=== PATIENT | female | born 1945 | race African-American/Black ===

== ENCOUNTER 2016-09-27 17:42 | Inpatient (IN) | payer MEDICARE ==
[2016-09-27] MEDS ORDERED: SODIUM CHLORIDE 0.9% 1,000 ML IV ONE (18:01)
--- NOTE | 2016-09-27 18:06 | ED ---
General Adult HPI - General Chief complaint: Altered Mental Status Stated complaint: Altered Mental Status Time Seen by Provider: 09/27/16 18:01 Source: patient, EMS, RN notes reviewed, old records reviewed Mode of arrival: EMS Limitations: altered mental status - History of Present Illness Initial comments: This is a 8-year-old female here for evaluation of altered mental status. Patient ultimately of history secondary to mental state. Asians poor historian. Patient denies drugs or alcohol. Patient's family EMS after PD question patient regarding trying to get him to [place]. Patient does not or she is not a [place] think she come from [facility] and she turned the wrong way and [address]. Again patient has no complaints - Related Data Allergies Allergy/AdvReac Type Severity Reaction Status Date / Time No Known Allergies Allergy Verified 09/27/16 17:50 Review of Systems ROS Statement: Those systems with pertinent positive or pertinent negative responses have been documented in the HPI. ROS Other: All systems not noted in ROS Statement are negative. Past Medical History Past Medical History: Unable to Obtain History of Any Multi-Drug Resistant Organisms: None Reported Past Surgical History: Unable to Obtain Past Psychological History: No Psychological Hx Reported Smoking Status: Never smoker Past Alcohol Use History: None Reported Past Drug Use History: None Reported General Exam Limitations: altered mental status General appearance: alert, in no apparent distress, in distress Head exam: Present: atraumatic, normocephalic, normal inspection Eye exam: Present: normal appearance, PERRL, EOMI. Absent: scleral icterus, conjunctival injection, periorbital swelling ENT exam: Present: normal exam, mucous membranes moist Neck exam: Present: normal inspection. Absent: tenderness, meningismus, lymphadenopathy Respiratory exam: Present: normal lung sounds bilaterally. Absent: respiratory distress, wheezes, rales, rhonchi, stridor Cardiovascular Exam: Present: regular rate, normal rhythm, normal heart sounds. Absent: systolic murmur, diastolic murmur, rubs, gallop, clicks GI/Abdominal exam: Present: soft, normal bowel sounds. Absent: distended, tenderness, guarding, rebound, rigid Extremities exam: Present: normal inspection, full ROM, normal capillary refill. Absent: tenderness, pedal edema, joint swelling, calf tenderness Back exam: Present: normal inspection Neurological exam: Present: alert, oriented X3, CN II-XII intact Psychiatric exam: Present: normal affect, normal mood Skin exam: Present: warm, dry, intact, normal color. Absent: rash Course Vital Signs 09/27/16 09/27/16 17:46 18:44 Temperature 98.3 F Pulse Rate 89 80 Respiratory 20 16 Rate Blood Pressure 162/74 149/66 O2 Sat by Pulse 97 95 Oximetry - Reevaluation(s) Reevaluation #1: 09/27/16 18:50 Patient remained significant other with no family member at bedside EKG Findings - EKG Comments: EKG Findings:: EKG shows normal sinus rhythm rate of 84, para 206, QRS 80, QTC 475 Medical Decision Making - Medical Decision Making 71 female in the ER for evaluation of altered mental status. Patient is not aware she is or how she got here. Patient was found try to get in to [place]. Patient is found to be anemic and will be admitted for transfusion and further monitoring of mental state - Lab Data Result diagrams: 09/27/16 18:00 09/27/16 18:00 Lab Results 09/27/16 09/27/16 09/27/16 Range/Units 18:00 18:00 18:00 WBC 7.1 (3.8-10.6) k/uL RBC 3.65 L (3.80-5.40) m/uL Hgb 5.5 L* (11.4-16.0) gm/dL Hct 23.0 L (34.0-46.0) % MCV 63.1 L (80.0-100.0) fL MCH 15.0 L (25.0-35.0) pg MCHC 23.8 L (31.0-37.0) g/dL RDW 22.2 H (11.5-15.5) % Plt Count 354 (150-450) k/uL Neutrophils % 77 % Lymphocytes % 14 % Monocytes % 4 % Eosinophils % 2 % Basophils % 1 % Neutrophils # 5.5 (1.3-7.7) k/uL Lymphocytes # 1.0 (1.0-4.8) k/uL Monocytes # 0.3 (0-1.0) k/uL Eosinophils # 0.2 (0-0.7) k/uL Basophils # 0.1 (0-0.2) k/uL Polychromasia Present Hypochromasia Marked Poikilocytosis Slight Anisocytosis Moderate Microcytosis Marked PT (9.0-12.0) sec INR (<1.1) APTT (22.0-30.0) sec Sodium 143 (137-145) mmol/L Potassium 3.4 L (3.5-5.1) mmol/L Chloride 104 (98-107) mmol/L Carbon Dioxide 27 (22-30) mmol/L Anion Gap 12 mmol/L BUN 16 (7-17) mg/dL Creatinine 0.71 (0.52-1.04) mg/dL Est GFR (MDRD) Af Amer >60 (>60 ml/min/1.73 sqM) Est GFR (MDRD) Non-Af >60 (>60 ml/min/1.73 sqM) Glucose 122 H (74-99) mg/dL Calcium 8.9 (8.4-10.2) mg/dL Total Bilirubin 1.4 H (0.2-1.3) mg/dL AST 13 L (14-36) U/L ALT 20 (9-52) U/L Alkaline Phosphatase 94 (38-126) U/L Ammonia 20 (<30) umol/L Total Protein 6.8 (6.3-8.2) g/dL Albumin 3.7 (3.5-5.0) g/dL Serum Alcohol <10 mg/dL 09/27/16 Range/Units 18:00 WBC (3.8-10.6) k/uL RBC (3.80-5.40) m/uL Hgb (11.4-16.0) gm/dL Hct (34.0-46.0) % MCV (80.0-100.0) fL MCH (25.0-35.0) pg MCHC (31.0-37.0) g/dL RDW (11.5-15.5) % Plt Count (150-450) k/uL Neutrophils % % Lymphocytes % % Monocytes % % Eosinophils % % Basophils % % Neutrophils # (1.3-7.7) k/uL Lymphocytes # (1.0-4.8) k/uL Monocytes # (0-1.0) k/uL Eosinophils # (0-0.7) k/uL Basophils # (0-0.2) k/uL Polychromasia Hypochromasia Poikilocytosis Anisocytosis Microcytosis PT 11.0 (9.0-12.0) sec INR 1.1 (<1.1) APTT 24.3 (22.0-30.0) sec Sodium (137-145) mmol/L Potassium (3.5-5.1) mmol/L Chloride (98-107) mmol/L Carbon Dioxide (22-30) mmol/L Anion Gap mmol/L BUN (7-17) mg/dL Creatinine (0.52-1.04) mg/dL Est GFR (MDRD) Af Amer (>60 ml/min/1.73 sqM) Est GFR (MDRD) Non-Af (>60 ml/min/1.73 sqM) Glucose (74-99) mg/dL Calcium (8.4-10.2) mg/dL Total Bilirubin (0.2-1.3) mg/dL AST (14-36) U/L ALT (9-52) U/L Alkaline Phosphatase (38-126) U/L Ammonia (<30) umol/L Total Protein (6.3-8.2) g/dL Albumin (3.5-5.0) g/dL Serum Alcohol mg/dL - Radiology Data Radiology results: report reviewed (CT brain is negative for acute disease), image reviewed Disposition Clinical Impression: Altered mental status, Anemia Disposition: ADMITTED IP TO [facility] Condition: Fair Referrals: Nonstaff,Physician [Primary Care Provider] - 1-2 days
[2016-09-27 18:28] LABS: Anisocytosis Moderate; Basophils # (A) 0.1 k/uL (0-0.2); Basophils % (A) 1 %; CH 15.2; CHCM 24.4; Eosinophils # (A) 0.2 k/uL (0-0.7); Eosinophils % (A) 2 %; HDW 3.49; Hypochromasia Marked; Luc # (Auto) 0.14; Luc % (Auto) 2; Lymphocytes % (A) 14 %; MCV 63.1 fL (80.0-100.0); Mean Platelet Volume 8.4; Microcytosis Marked; Monocytes # (A) 0.3 k/uL (0-1.0); Monocytes % (A) 4 %; Neutrophils # (A) 5.5 k/uL (1.3-7.7); Neutrophils % (A) 77 %; Poikilocytosis Slight; RBC 3.65 m/uL (3.80-5.40); RDW 22.2 % (11.5-15.5); WBC 7.1 k/uL (3.8-10.6); WBC (Perox) 6.94
[2016-09-27 18:29] LABS: MCHC 23.8 g/dL (31.0-37.0)
[2016-09-27 18:30] LABS: HGB 5.5 gm/dL (11.4-16.0)
[2016-09-27 18:40] LABS: Polychromasia Present
--- NOTE | 2016-09-27 18:41 | CT ---
EXAMINATION TYPE: CT brain wo con DATE OF EXAM: 09/27/2016 6:36 PM COMPARISON: NONE HISTORY: Altered mental status. CT DLP: 1121.00 mGycm Automated exposure control for dose reduction was used. FINDINGS: There is patchy hypodensity in the periventricular white matter. There is some 2 cm area of cortical decreased density in the right posterior parietal lobe. There is no mass effect nor midline shift. Th ere is no sign of intracranial hemorrhage. The calvarium is intact. There is cerebral cortical atroph y. IMPRESSION: Cerebral atrophy and moderate chronic small vessel ischemia. 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 No acute abnormality.
[2016-09-27 18:42] LABS: ALT 20 U/L (9-52); AST 13 U/L (14-36); Alcohol <10 mg/dL; Alkaline Phosphatase 94 U/L (38-126); Anion Gap 12 mmol/L; Blood Urea Nitrogen 16 mg/dL (7-17); Calcium 8.9 mg/dL (8.4-10.2); Carbon Dioxide 27 mmol/L (22-30); Chloride 104 mmol/L (98-107); Glucose 122 mg/dL (74-99); Non-African American GFR(MDRD) >60 (>60 ml/min/1.73 sqM); Potassium 3.4 mmol/L (3.5-5.1); Sodium 143 mmol/L (137-145); Total Bilirubin 1.4 mg/dL (0.2-1.3); Total Protein 6.8 g/dL (6.3-8.2)
[2016-09-27 18:47] LABS: INR 1.1 (<1.1); Partial Thromboplastin Time 24.3 sec (22.0-30.0)
[2016-09-27 18:49] LABS: Creatine Kinase 62 U/L (30-135)
[2016-09-27 19:02] LABS: Creatine Kinase MB 0.9 ng/mL (0.0-2.4); Troponin I <0.012 ng/mL (0.000-0.034)
[2016-09-27] MEDS: SODIUM CHLORIDE 0.9% 1,000 ML IV SCH (21:58)
[2016-09-28 04:51] LABS: Anisocytosis Moderate; Basophils % (A) 0 %; CH 18.5; CHCM 27.1; Eosinophils # (A) 0.2 k/uL (0-0.7); Eosinophils % (A) 2 %; HCT 28.1 % (34.0-46.0); HDW 6.51; Hypochromasia Marked; Luc # (Auto) 0.23; Luc % (Auto) 3; Lymphocytes # (A) 0.9 k/uL (1.0-4.8); Lymphocytes % (A) 12 %; MCH 18.4 pg (25.0-35.0); MCV 67.3 fL (80.0-100.0); Mean Platelet Volume 7.9; Microcytosis Marked; Monocytes # (A) 0.3 k/uL (0-1.0); Monocytes % (A) 4 %; Neutrophils # (A) 5.8 k/uL (1.3-7.7); Neutrophils % (A) 78 %; Poikilocytosis Marked; RBC 4.18 m/uL (3.80-5.40); WBC 7.4 k/uL (3.8-10.6); WBC (Perox) 7.88
[2016-09-28 05:17] LABS: Appearance,Urine Cloudy (Clear); Bacteria,Urine Rare /hpf; Bilirubin,Urine Negative (Negative); Glucose,Urine (UA) Negative (Negative); Ketones,Urine Negative (Negative); Leukocyte Esterase,Urine Large (Negative); Mucus,Urine Rare /hpf; Nitrite,Urine Negative (Negative); PH, Urine 5.5 (5.0-8.0); Particle Count 9020; Protein,Urine 1+ (Negative); RBC,Urine 8 /hpf (0-5); Specific Gravity,Urine 1.022 (1.001-1.035); Squamous Epithelial Cell,Urine 10 /hpf (0-4); UA Billing (MACRO vs. MICRO) MICRO; WBC,Urine 62 /hpf (0-5)
[2016-09-28 06:31] LABS: MCHC 27.4 g/dL (31.0-37.0)
[2016-09-28 06:33] LABS: HGB 7.7 gm/dL (11.4-16.0)
[2016-09-28 07:20] LABS: Glucose,Whole Blood 136 mg/dL (75-99)
[2016-09-28] MEDS: INSULIN LISPRO (humaLOG) 300 UNIT/3 ML VIAL SQ SCH ×4 (07:59→21:50)
[2016-09-28 08:00] LABS: Glucose,Whole Blood 141 mg/dL (75-99)
[2016-09-28 11:46] LABS: Anisocytosis Moderate; Basophils % (A) 1 %; CH 18.5; Eosinophils # (A) 0.2 k/uL (0-0.7); Eosinophils % (A) 3 %; HCT 28.1 % (34.0-46.0); HDW 6.51; HGB 7.7 gm/dL (11.4-16.0); Hypochromasia Marked; Luc # (Auto) 0.14; Luc % (Auto) 2; Lymphocytes # (A) 1.1 k/uL (1.0-4.8); Lymphocytes % (A) 13 %; MCH 18.7 pg (25.0-35.0); MCV 67.8 fL (80.0-100.0); Microcytosis Marked; Monocytes # (A) 0.3 k/uL (0-1.0); Monocytes % (A) 4 %; Neutrophils # (A) 6.3 k/uL (1.3-7.7); Neutrophils % (A) 78 %; Poikilocytosis Marked; RBC 4.14 m/uL (3.80-5.40); RDW 22.8 % (11.5-15.5)
[2016-09-28 11:50] LABS: MCHC 27.6 g/dL (31.0-37.0)
[2016-09-28 12:04] LABS: Anion Gap 9 mmol/L; Blood Urea Nitrogen 16 mg/dL (7-17); Calcium 8.8 mg/dL (8.4-10.2); Carbon Dioxide 28 mmol/L (22-30); Chloride 105 mmol/L (98-107); Glucose 136 mg/dL (74-99); Magnesium 1.9 mg/dL (1.6-2.3); Non-African American GFR(MDRD) >60 (>60 ml/min/1.73 sqM); Potassium 3.9 mmol/L (3.5-5.1); Sodium 142 mmol/L (137-145)
[2016-09-28] MEDS ORDERED: Potassium Replacement Protocol 1 EACH MISC MISCELLANE PRN (12:08)
[2016-09-28] MEDS: POTASSIUM CHLORIDE ER 20 MEQ TAB.ER PO SCH (12:38)
--- NOTE | 2016-09-28 16:38 | XR ---
EXAMINATION TYPE: XR chest 2V DATE OF EXAM: 09/28/2016 4:21 PM COMPARISON: NONE HISTORY: Lump palpated under left breast. TECHNIQUE: Frontal and lateral views of the chest are obtained. FINDINGS: There is no focal air space opacity, pleural effusion, or pneumothorax seen. The cardiac silhouette size is enlarged. The osseous structures are intact. Cholecystectomy clips are noted on lateral view. IMPRESSION: Cardiomegaly without acute pulmonary process. Consider further investigation for palpate d lump with ultrasound or CT.
[2016-09-28 17:02] LABS: Glucose,Whole Blood 125 mg/dL (75-99)
[2016-09-28] MEDS: amLODIPine 10 MG TAB PO SCH (17:03)
[2016-09-28] MEDS: LEVOFLOXACIN 500MG-D5W PMX 500 MG in DEXTROSE/WATER 1 100ML.BAG IVPB SCH (17:03)
[2016-09-28] MEDS ORDERED: glipiZIDE 10 MG TAB PO SCH (17:30)
[2016-09-28] MEDS ORDERED: PEG 3350-NA SULF,BICARB,CL/KCL 4,000 ML BOTTLE PO ONE (18:00)
[2016-09-28] MEDS: metFORMIN 500 MG TAB PO SCH (18:17)
[2016-09-28 19:33] LABS: Anisocytosis Moderate; Basophils % (A) 1 %; CH 18.1; CHCM 26.1; Eosinophils # (A) 0.3 k/uL (0-0.7); Eosinophils % (A) 4 %; HCT 28.7 % (34.0-46.0); HDW 6.04; HGB 7.4 gm/dL (11.4-16.0); Hypochromasia Marked; Luc # (Auto) 0.19; Luc % (Auto) 2; Lymphocytes # (A) 1.4 k/uL (1.0-4.8); Lymphocytes % (A) 16 %; MCH 17.8 pg (25.0-35.0); MCV 68.7 fL (80.0-100.0); Mean Platelet Volume 8.5; Microcytosis Marked; Monocytes # (A) 0.3 k/uL (0-1.0); Monocytes % (A) 4 %; Neutrophils # (A) 6.7 k/uL (1.3-7.7); Neutrophils % (A) 75 %; Poikilocytosis Marked; RBC 4.18 m/uL (3.80-5.40); RDW 23.4 % (11.5-15.5); WBC (Perox) 9.04
[2016-09-28 19:54] LABS: MCHC 25.9 g/dL (31.0-37.0)
[2016-09-28] MEDS: SODIUM CHLORIDE 0.9% 1,000 ML IV SCH (20:03)
--- NOTE | 2016-09-28 20:37 | US ---
EXAMINATION TYPE: US extremity nonvasc mass LT DATE OF EXAM: 09/28/2016 8:25 PM COMPARISON: NONE CLINICAL HISTORY: palpable lump/mass located in upper left arm. No pain. Isoechoic area visualized at the patient's palpable lump measuring 3.7 x 1.8 x 3.3 cm- possible lipom a vs other etiology IMPRESSION: There is an oval-shaped solid mass in the area of concern. This could be a lipoma. There is shape suggests a benign etiology.
[2016-09-28 21:10] LABS: Glucose,Whole Blood 112 mg/dL (75-99)
--- NOTE | 2016-09-28 21:33 | HP ---
DATE OF ADMISSION: 09/27/2016 CHIEF COMPLAINT: Altered mental status. HISTORY OF PRESENT ILLNESS: Ms. Hurst is a 71-year-old female with known history of hypertension, hyperlipidemia, brought to the hospital for evaluation of altered mental status. Apparently, patient [place] [address] and was talking to the border protection team where she was found to be confused and referred to the hospital via EMS. She came from [place], [place] and she turned the wrong [address] [place] [address]. The patient was found to be anemic with hemoglobin around 5 and patient was continued on IV fluids and continued to monitor overnight. The patient seems to be more care more awake and oriented now and CT head is negative. UA showed cloudy with elevated WBC count and possible contaminant sample. Urine culture has been ordered. Chest x-ray was done. The patient was found to have palpated lump over the breast for which chest x-ray was done. Also did ultrasound of the ( ) patient says that patient was transfused previously and always has history of anemia and she gets blood transfusion every month. She denied any heavy menstruation. She is currently menopausal. Currently patient denied any fever, chills. No recent illnesses. No sick contacts at home. REVIEW OF SYSTEMS: CONSTITUTIONAL: No fever. No chills. RESPIRATORY: No cough or sputum production. CARDIOVASCULAR: No chest pain or shortness of breath. No leg swelling. ABDOMEN: No nausea, vomiting or abdominal pain. GENITOURINARY: Negative. ENDOCRINE: Negative. PSYCHIATRY: Negative. All other fourteen-point review of systems negative except as above. The patient blood pressure was 160s when she came to the hospital. PAST MEDICAL HISTORY: Diabetes mellitus, [id number], hypertension, osteoarthritis bilateral knees, vitamin D deficiency and chronic anemia. PAST SURGICAL HISTORY: Tonsillectomy, EGD, colonoscopy. No psychosocial history. Patient never a smoker. Occasional alcohol use. Patient had marijuana use several years ago. FAMILY HISTORY: Father of colon cancer. Home medications include: 1. Ergocalciferol. 2. Hydrochlorothiazide. 3. Amlodipine. 4. Benazepril. 5. Glipizide. 6. Metformin. ALLERGIES: No known drug allergies. PHYSICAL EXAMINATION: A 71-year-old female sitting in the bed comfortably, awake, alert, oriented, x3, appears to be in no apparent distress. VITALS: Blood pressure is 180/81, pulse is 69, respirations 16, temperature afebrile, pulse ox is 94% room air. HEENT: Atraumatic, normocephalic. Neck is supple. No JVD. CVS: S1, S2 heard. No murmurs, no gallop. LUNGS: Bilateral air entry is present. No wheezing. No crackles. ABDOMEN: Soft, nontender. Bowel sounds present. CENTRAL NERVOUS SYSTEM: Awake, alert and oriented x3. No focal deficits. EXTREMITIES: No edema. Pulses are palpable bilaterally. No clubbing or cyanosis. PSYCHIATRIC: Cooperative. LABORATORY DATA: WBC 7.1, hemoglobin 5.5, MCV 63.1, RDW 22.2, platelet count is 354. INR 1.1. Sodium 143, potassium 3.4, chloride 104, bicarb is 27. BUN 16, creatinine 0.71, bilirubin is 1.3, AST is 13, troponin negative. UA is cloudy with large leukocyte esterase and 62 WBCs and 10 squamous epithelial cells. UDS negative. Alcohol negative. CT head, cerebral atrophy and moderate chronic small vessel ischemia. Small old right posterior ( ) cortical infarct. No acute abnormalities seen. IMPRESSION: 1. Altered mental status, possible acute metabolic encephalopathy, secondary metabolic encephalopathy secondary to Anemia and infection. 2. Possible urinary tract infection. 3. Symptomatic anemia, etiology unknown. GI w/u in process 4. Microcytic anemia/ Iron Deff Anemia 5. Chronic anemia with a history of blood transfusion in the past. 6. Recent history of weight loss intentional as per the patient, lost about 100 lbs. 7. Hypertension, uncontrolled. 8. Diabetes mellitus, [id number], type II. DISCUSSION AND PLAN: Patient was admitted to hospital with hemoglobin of 5.5 underwent blood transfusion and patient otherwise denied any blood in the stool. No hematemesis or hematuria. Will check iron profile and continue the home medications for blood pressure and diabetes mellitus and follow closely. GI consulted. We will get an ultrasound of the Left breast lump. Chest x-ray showed no acute abnormality. CT head is negative. We will replace potassium level and follow up closely. Follow up urine cultures. Continue antibiotics in the form of Levofloxacin and further recommendations based on clinical course. Discussed with the family in detail. LATOSHA
--- NOTE | 2016-09-28 22:29 | CONS ---
DATE OF CONSULTATION: 09/28/2016 REASON FOR CONSULTATION: Severe hypochromic microcytic anemia. HISTORY OF PRESENT ILLNESS: The patient is a 71-year-old -Australian female who was admitted to the hospital with some altered mental status. Apparently she was driving and she lost her way and found by the police and was subsequently brought to the emergency room at [facility]. In the ER she was noted to have a hemoglobin of 5.6 and hence was admitted to the hospital for further evaluation. The patient said that she has been anemic for many years. She recalls having an EGD and colonoscopy about 5 years ago, including a small bowel capsule endoscopy, and was told she had small, what sounds like angiectasia that was bleeding which was cauterized in the [place] area. She does not recall the physician's name who performed the procedure. She was advised to have a repeat colonoscopy in 5 years because of strong family history of colon cancer diagnosed in both her mother and father. She denies any recent NSAID use. She denies any prior history of peptic ulcer disease. Her past medical history is significant for: 1. Hypertension. 2. Hypercholesterolemia. 3. Diabetes mellitus. Medications at home include: 1. Glucophage. 2. Glucotrol. 3. Benazepril. 4. Lotrel. 5. Hydrodiuril. 6. Vitamin D2. ALLERGIES: NONE. SOCIAL HISTORY: No smoking. No alcohol use. FAMILY HISTORY: ( ) PAST SURGICAL HISTORY: EGD, colonoscopy approximately 5 to 6 years ago, according to the patient. On physical examination she appears comfortable, in no apparent distress. Vital signs are stable. Blood pressure 169/77, pulse rate 81, temperature 97.3. HEENT: Unremarkable. Conjunctivae pink, sclerae anicteric. Oral cavity with no lesions. NECK: No JVD or lymph node enlargement. CHEST: Clear to auscultation. HEART: Regular rate and rhythm. ABDOMEN: Soft. Bowel sounds positive. No organomegaly. EXTREMITIES: No pedal edema. SKIN: No rashes. NEURO: Alert and oriented x3. No focal deficits. LABS DONE AT THE TIME OF ADMISSION TO THE HOSPITAL: Hemoglobin was 5.5, MCV 63, WBC 7.1 and platelets 354. BUN and creatinine within normal limits. After 2 units, her hemoglobin is 7.7. IMPRESSION: Severe symptomatic microcytic hypochromic anemia consistent with iron deficiency anemia. Patient denies any active GI bleeding. Most likely we are dealing with occult GI blood loss. Patient had a similar episode several years ago and had multiple blood transfusions about 10 years ago. Her last EGD and colonoscopy in the [facility] was more than 5 years ago and, according to the patient, they showed some mild bleeding ( ) as per the history. No records are available at the time of this dictation. RECOMMENDATIONS: 1. I agree with blood transfusion. 2. I had a lengthy discussion with the patient regarding workup of iron deficiency anemia. I gave her an option of having an EGD and colonoscopy here or after she returns back to the [facility]. She chooses to have the procedures done while in the hospital. Hence I will schedule her for an upper endoscopy as well as colonoscopy tomorrow. I discussed with her the risks, benefits and complications of the procedure, and she is agreeable to it. Thank you for this consultation.
[2016-09-29 07:41] LABS: Glucose,Whole Blood 108 mg/dL (75-99)
[2016-09-29] MEDS: INSULIN LISPRO (humaLOG) 300 UNIT/3 ML VIAL SQ SCH ×3 (08:24→17:48)
[2016-09-29] MEDS: metFORMIN 500 MG TAB PO SCH ×3 (08:24→18:19)
[2016-09-29] MEDS: amLODIPine 10 MG TAB PO SCH (08:25)
[2016-09-29 08:30] VITALS: RESP 16
--- NOTE | 2016-09-29 08:45 | CONS ---
DATE OF CONSULTATION: 09/28/2016 CHIEF COMPLAINT: Altered mental status. HISTORY OF PRESENT ILLNESS: Mrs. Hurst is a pleasant 71-year-old female who is being evaluated today on 09/28/16 by the neurology service per the request of for altered mental status. The patient was brought into [facility] Emergency Room after she was found to be confused at the [facility]. It is unclear how she got to [place] as the patient states that she was in [place] "and took a wrong turn". The patient was disoriented and she was transferred by EMS to [facility] Emergency Room. The patient was found to have significant anemia with a hemoglobin of 5.5. Her MCV was low at 67. The patient was also found to have a urinary tract infection as her urinalysis showed 62 WBCs with large leukocyte esterase. Her urine drug screen was negative. A CT scan of the brain was done, which showed generalized atrophy and small vessel ischemic changes. An old lacunar infarct was noticed in the right parietal lobe. The patient was transfused with 2 units of packed red blood cells and her symptoms significantly improved. She was also started on Levaquin for her urinary tract infection. The patient was admitted for further workup and management and Gastroenterology has been consulted. She is scheduled to have a scope tomorrow. Her repeat CBC showed an improvement in her hemoglobin to 7.7. PAST MEDICAL HISTORY: Chronic anemia, diabetes, hypertension. SOCIAL HISTORY: She denies any tobacco, alcohol or drug use. FAMILY HISTORY: Noncontributory. HOME MEDICATIONS: Reviewed in the chart. ALLERGIES: No known drug allergies. REVIEW OF SYSTEMS: As mentioned above and otherwise negative. PHYSICAL EXAM: Vital signs show a temperature of 98.6, pulse 69, respirations 16, blood pressure of 180/81. GENERAL APPEARANCE: The patient is an obese female who appears to be in no acute distress. HEENT: Normocephalic, atraumatic, no facial asymmetry is seen. Neck is supple with no masses felt. CARDIOVASCULAR: Regular rate and rhythm. ABDOMEN: Nontender, nondistended. Extremities showed trace edema with no clubbing seen. NEUROLOGICAL EXAM: The patient is alert, aware, and oriented x3. Speech and language are normal. Strength is full in all 4 extremities. Sensory exam was normal to light touch in all 4 extremities. No tremors are seen. No facial asymmetry is noticed on cranial nerve testing. IMPRESSION: 1. Altered mental status, resolved. 2. Acute infectious encephalopathy. 3. Severe anemia. 4. Acute urinary tract infection. RECOMMENDATIONS: The patient's altered mental status has resolved at this time. This was likely due to her urinary tract infection and severe anemia. She is status post transfusion with improvements in her symptoms. She is also on Levaquin for her urinary tract infection. An EEG has been ordered. I will order an iron profile as her MCV is quite low as well. Gastroenterology is following the patient and she is scheduled for a scope tomorrow. Continue neuro checks. I will continue to follow with you. Further recommendations to follow. Thank you for allowing me to participate in the care of your patient. If you have any questions, please feel free to contact me.
[2016-09-29] MEDS ORDERED: LISINOPRIL 20 MG TAB PO SCH (09:00)
[2016-09-29] MEDS ORDERED: LIDOCAINE 1% INJ 10MG/ML (20 ML MDV) ONE (09:23)
[2016-09-29] MEDS ORDERED: PROPOFOL 10 MG/ML 20 ML VIAL IV ONE (09:23)
[2016-09-29] MEDS ORDERED: IV FLUID CONTINUATION 1,000 ML IV ONE (09:24)
[2016-09-29] MEDS ORDERED: SODIUM CHLORIDE 0.9% 500 ML IV ONE (09:42)
--- NOTE | 2016-09-29 09:52 | P.PCN ---
Date of Procedure: 09/29/16 Procedure(s) Performed: Brief history: Patient is a pleasant 71-year-old -[place] female, scheduled for an elective upper endoscopy as well as colonoscopy as a part of evaluation of severe microcytic hyperchromic anemia with hemoglobin of 5.5 requiring 2 units of blood transfusion. She denies any GI symptoms. Reports no rectal bleeding or melena. Her last EGD and colonoscopy in [facility] were done about 5-10 years ago. Procedure performed: Esophagogastroduodenoscopy with biopsy Colonoscopy Preoperative diagnosis: Severe microcytic hypochromic anemia Anesthesia: MAC Procedure: After informed consent was obtained from the patient was brought into the endoscopy unit and IV sedation was administered by anesthesia under continuous monitoring. Initially upper endoscopy was done. The Olympus GF 160 video endoscope was inserted inserted into the mouth and esophagus intubated without any difficulty and was gradually advanced into the pouch and there was evidence of previous gastric bypass surgery with Lulu-en-Y anastomosis. The gastric pouch appeared normal. The anastomosis appeared normal. Scope was advanced into the efferent loop into the proximal jejunum which appeared normal and biopsies were done from this area. The scope at this time was withdrawn to the gastric pouch and the mucosa appeared normal. The scope was then withdrawn into the esophagus. The GE junction was located at 38 cm to the incisors. It appeared regular but there were 2 superficial erosions consistent with LA grade B reflux esophagitis. Rest of the esophagus appeared normal. Patient tolerated the procedure well. At this time the patient continued to remain sedation. Initial digital rectal examination was normal. Olympus CF 160 video colonoscope was then inserted into the rectum and gradually advanced to the cecum without any difficulty. Careful examination was performed as the scope was gradually being withdrawn. The prep was fair. Irrigation was performed using irrigation system. Terminal ileum was intubated and 20 cm visualized and appeared normal. The cecum, ascending colon, transverse colon, descending colon, sigmoid colon and rectum appeared normal. Retroflexion was performed in the rectum and no lesions were noted. Patient tolerated the procedure well. Impression: 1. Upper endoscopy revealed normal-appearing gastric pouch and evidence of Lulu -en-Y anastomosis. Grade 2 reflux esophagitis 2. Colonoscopy was essentially within normal limits with no evidence of colitis or colorectal neoplasia. Recommendations: Findings of this examination were discussed with the patient as well as her family. She was advised to start on iron supplements one tablet twice daily. Most likely the iron deficiency anemia is related to previous gastric bypass surgery. She will also need to have a small bowel capsule endoscopy and outpatient basis.
[2016-09-29 10:01] LABS: Anion Gap 9 mmol/L; Blood Urea Nitrogen 10 mg/dL (7-17); Carbon Dioxide 27 mmol/L (22-30); Chloride 106 mmol/L (98-107); Glucose 109 mg/dL (74-99); Non-African American GFR(MDRD) >60 (>60 ml/min/1.73 sqM); Potassium 3.9 mmol/L (3.5-5.1); Sodium 142 mmol/L (137-145)
[2016-09-29 10:19] LABS: Anisocytosis Moderate; Basophils % (A) 0 %; CH 18.3; CHCM 26.8; Eosinophils # (A) 0.3 k/uL (0-0.7); Eosinophils % (A) 3 %; HDW 6.18; Hypochromasia Marked; Luc # (Auto) 0.15; Luc % (Auto) 2; Lymphocytes # (A) 1.3 k/uL (1.0-4.8); Lymphocytes % (A) 13 %; MCH 18.2 pg (25.0-35.0); MCV 67.8 fL (80.0-100.0); Mean Platelet Volume 7.9; Microcytosis Marked; Monocytes # (A) 0.3 k/uL (0-1.0); Monocytes % (A) 3 %; Neutrophils # (A) 7.9 k/uL (1.3-7.7); Neutrophils % (A) 79 %; Poikilocytosis Marked; RBC 4.42 m/uL (3.80-5.40); RDW 23.4 % (11.5-15.5)
[2016-09-29 10:26] LABS: MCHC 26.8 g/dL (31.0-37.0)
[2016-09-29 11:29] LABS: Manual Review Performed
[2016-09-29 11:30] LABS: Polychromasia Present; Spherocytes Present
[2016-09-29 11:33] LABS: Large Platelets Present
[2016-09-29 11:39] LABS: Glucose,Whole Blood 171 mg/dL (75-99)
[2016-09-29] MEDS ORDERED: LEVOFLOXACIN 500 MG TAB PO SCH (16:00)
[2016-09-29 16:07] VITALS: BP 141/71; PULSE 77; TEMP 97.1
[2016-09-29 16:48] LABS: Glucose,Whole Blood 120 mg/dL (75-99)
[2016-09-29] MEDS ORDERED: SODIUM FERRIC GLUCONAT-SUCROSE 125 MG in SODIUM CHLORIDE 0.9% 100 ML IVPB ONE (17:00)
[2016-09-29] MEDS: LEVOFLOXACIN 500MG-D5W PMX 500 MG in DEXTROSE/WATER 1 100ML.BAG IVPB SCH (17:08)
[2016-09-29] MEDS ORDERED: FERROUS SULFATE 325 MG TAB PO SCH (17:30)
--- NOTE | 2016-09-30 15:00 | DS ---
DATE OF ADMISSION: 09/27/2016 DATE OF DISCHARGE: 09/29/2016 CONSULTATION: Neurology and GI consultation. PROCEDURES: Colonoscopy and EGD. DISCHARGE DIAGNOSES: 1. Altered mental status, possibly acute metabolic encephalopathy from infection as well as anemia, resolved at this time. 2. Symptomatic hemoglobin with hemoglobin 5.5 on admission, status post blood transfusion and there is a possibility of urinary tract infection. 3. Microcytic iron-deficiency anemia. 4. History of Lulu-en-Y procedure. 5. Chronic anemia with history of blood transfusion. 6. Recent history of intentional weight loss. 7. Hypertension, uncontrolled on admission. 8. Diabetes mellitus, wpj-wkljjuo-krkegmbhe type 2. 9. Lipoma on the ( ) benign in nature now. HOSPITAL COURSE: Ms. Hurst is a 71-year-old female with known history of chronic anemia, history of Lulu-en-Y procedure, was admitted to the hospital with altered mental status. Patient was found to have a hemoglobin of 5.5. Patient underwent a transfusion. Patient had an ( ) culture that ended up being anemia. Patient was seen at the [facility] and underwent EGD and colonoscopy. EGD showed the patient had history of Lulu-en-Y procedure as well as reflux esophagitis. Colonoscopy within normal limits. Otherwise, patient had altered mental status which resolved now. Currently at baseline. Patient does have history of multiple transfusions in the past. Patient was found to have iron deficiency and patient was given one dose of IV iron and the patient will be supplemented with iron sulfate twice daily along with food. Otherwise, patient denied any complaints now and wants to be discharged. Hemoglobin is stable around 8 today. Otherwise, patient will be discharged home and follow with the primary care physician in 1 to 2 days. DISCHARGE PHYSICAL EXAMINATION: A 71-year-old female, lying in the bed, comfortable, awake, alert, oriented x3, appears to be in no apparent distress. VITALS: Blood pressure is 141/71, pulse is 77, respirations 16, temperature is afebrile, pulse ox 93% on room air. LABORATORY DATA: Reviewed. Discharge physical examination done. Discharge medications include: 1. Vitamin D2 50,000 units p.o. q. 7 days. 2. Hydrochlorothiazide 25 mg p.o. daily. 3. Amlodipine/benazepril 10/20 one capsule p.o. daily. 4. Glipizide 10 mg p.o. a.c. b.i.d. 5. Metformin 1000 mg p.o. b.i.d. 6. Ferrous sulfate 325 mg p.o. b.i.d. with meals. 7. Levaquin 500 mg q.24 hours, three more days. Activity as tolerated. Follow with the primary care physician in 1 to 2 days. Home with self-care. Heart healthy diet and diabetic diet.
== END 2016-09-29 19:36 | disposition home or self-care (01) | DRG 811 ==
LOC: EC 17:42 → 6SEL 18:50 → 4MS4W 09-28 14:48
PROVIDERS: ADMIT Hospitalist; ATTEND Hospitalist
PROC: 30233N1 Transfusion of Nonautologous Red Blood Cells into Peripheral Vein, Percutaneous Approach (ICD-10-PCS; principal; 2016-09-27)
PROC: 0DBA8ZX Excision of Jejunum, Via Natural or Artificial Opening Endoscopic, Diagnostic (ICD-10-PCS; 2016-09-29)
PROC: 0DJD8ZZ Inspection of Lower Intestinal Tract, Via Natural or Artificial Opening Endoscopic (ICD-10-PCS; 2016-09-29 09:30)
DX: D50.9 Iron deficiency anemia, unspecified (principal); G93.49 Other encephalopathy; E11.9 Type 2 diabetes mellitus without complications; N39.0 Urinary tract infection, site not specified; I10 Essential (primary) hypertension; E55.9 Vitamin D deficiency, unspecified; N63 Unspecified lump in breast; K21.0 Gastro-esophageal reflux disease with esophagitis; E78.5 Hyperlipidemia, unspecified; M17.0 Bilateral primary osteoarthritis of knee; I67.9 Cerebrovascular disease, unspecified; E66.9 Obesity, unspecified; R63.4 Abnormal weight loss; E78.00 Pure hypercholesterolemia, unspecified; Z79.84 Long term (current) use of oral hypoglycemic drugs; Z79.899 Other long term (current) drug therapy; Z80.0 Family history of malignant neoplasm of digestive organs; Z68.34 Body mass index [BMI] 34.0-34.9, adult; Z78.0 Asymptomatic menopausal state; Z98.84 Bariatric surgery status; Z87.19 Personal history of other diseases of the digestive system
CPT/HCPCS: 36415; 43239; 70450; 71020; 80048; 80053; 80306; 80320; 81001; 82140; 82550; 82553; 83540; 83550; 83735; 84484; 85025; 85610; 85730; 86850; 86900; 86901; 86920; 87086; 88305; 93005; 96360; 96361; 99285